=== PATIENT | female | born 1930 | race Caucasian/White ===

== ENCOUNTER 2020-04-04 09:08 | Inpatient (IN) | payer MEDICARE, BC ==
[~2020-04-04] VITALS: Ht 162.6 cm; Wt 52.2 kg
[2020-04-04 09:22] LABS: HEMOGLOBIN 11.5 gm/dl (12.3-15.3); RED BLOOD COUNT 3.82 M/UL (4.00-5.10); WHITE BLOOD COUNT 6.3 K/UL (4.5-11.0)
[2020-04-04 09:50] LABS: BUN/CREATININE RATIO 19 (0-10)
[2020-04-04] MEDS ORDERED: LISINOPRIL-HCT1 EAC1 PO (12:09)
[2020-04-05 03:30] LABS: HEMOGLOBIN 9.2 gm/dl (12.3-15.3); RED BLOOD COUNT 3.07 M/UL (4.00-5.10); WHITE BLOOD COUNT 12.2 K/UL (4.5-11.0)
--- NOTE | 2020-04-05 17:20 | NUR ---
PATIENT LEFT FLOOR AND WENT TO OR FOR SURGERY AND 1315.
[2020-04-05 17:54] LABS: HEMOGLOBIN 8.4 gm/dl (12.3-15.3)
--- NOTE | 2020-04-06 00:41 | NUR ---
COMPRESSION STOCKINGS AND SCUDS APPLIED TO PT. INCENTIVE SPIROMETER PROVIDED TO PT. TRIED TO EDUCATE PT ABOUT THE USE OF INCENTIVE SPIROMETER BUT WAS UNSUCCESSFUL. PT IS UNABLE TO LEARN DUE TO HEARING IMPAIRMENT AND COGNITIVE IMPAIRMENT.
[2020-04-06 05:52] LABS: HEMOGLOBIN 7.7 gm/dl (12.3-15.3)
[2020-04-06 05:59] LABS: RED BLOOD COUNT 2.57 M/UL (4.00-5.10); WHITE BLOOD COUNT 16.6 K/UL (4.5-11.0)
[2020-04-06] MEDS ORDERED: ENOXAPARIN30 MG/0.3 SC (11:54)
[2020-04-06] MEDS ORDERED: HYDROCODONE-AC1 EACH PO (11:54)
[2020-04-06] MEDS ORDERED: FERROUS SULFAT325 MG PO (12:03)
[2020-04-06] MEDS ORDERED: COLACE100 MG PO (12:03)
[2020-04-07] MEDS ORDERED: CEFEPIME HCL1 GM INJ (11:09)
[2020-04-07] MEDS ORDERED: LACTINEX TABLET1 EA PO (11:10)
== END 2020-04-07 14:10 | DRG 481 ==
LOC: ER1 09:08 → CDU 09:57 → M/S 09:57
PROVIDERS: Family Medicine; Hospitalist; Orthopaedic Surgery; Physician Assistant; ADMIT Internal Medicine
PROC: 0QS604Z Reposition Right Upper Femur with Internal Fixation Device, Open Approach (ICD-10-PCS; principal; 2020-04-05 12:15)
DX: S72.21XA Displaced subtrochanteric fracture of right femur, initial encounter for closed fracture (principal); N17.9 Acute kidney failure, unspecified; W01.0XXA Fall on same level from slipping, tripping and stumbling without subsequent striking against object, initial encounter; Y92.009 Unspecified place in unspecified non-institutional (private) residence as the place of occurrence of the external cause; F03.90 Unspecified dementia, unspecified severity, without behavioral disturbance, psychotic disturbance, mood disturbance, and anxiety; I10 Essential (primary) hypertension; Z20.822 Contact with and (suspected) exposure to COVID-19; I16.0 Hypertensive urgency; Z85.3 Personal history of malignant neoplasm of breast; H91.90 Unspecified hearing loss, unspecified ear; Z90.11 Acquired absence of right breast and nipple; I12.9 Hypertensive chronic kidney disease with stage 1 through stage 4 chronic kidney disease, or unspecified chronic kidney disease; N18.30 Chronic kidney disease, stage 3 unspecified; N30.90 Cystitis, unspecified without hematuria
CPT/HCPCS: 36415; 71045; 72170; 73502; 73552; 73564; 73590; 76000; 80048; 80053; 82550; 82553; 83874; 84484; 85014; 85018; 85025; 85027; 85610; 85730; 87077; 87086; 87186; 93005; 96374; 96375; 97162; 97166; 99285; C1713; J0690; J0692; J1100; J1170; J1650; J2270; J2405; J2704; J3010; J7120; U0002